=== PATIENT | male | born 1980 | race Asian ===

== ENCOUNTER 2019-09-23 14:49 | Emergency (ER) | payer OTHER ==
[~2019-09-23] VITALS: Ht 167.6 cm; Wt 92.5 kg
[2019-09-23 15:05] VITALS: BP 149/104; Ht 167.6 cm; Wt 92.5 kg
== END 2019-09-23 15:56 | disposition home or self-care (01) ==
LOC: ED 14:49
DX: M25.532 Pain in left wrist (principal); R10.30 Lower abdominal pain, unspecified; F17.210 Nicotine dependence, cigarettes, uncomplicated; V43.52XA Car driver injured in collision with other type car in traffic accident, initial encounter; Y93.I9 Activity, other involving external motion; Y92.411 Interstate highway as the place of occurrence of the external cause; Y99.8 Other external cause status